=== PATIENT | female | born 1965 | race American Indian/Alaskan Native ===

== ENCOUNTER 2016-11-21 12:39 | Emergency (ER) | payer BC, OTHER ==
[2016-11-21 14:18] LABS: Basophils % (Auto) 0.9 % (0.0-1.8); Eosinophils % (Auto) 0.5 % (0.0-4.3); Hematocrit 41.9 % (30.3-42.9); Hemoglobin 13.6 gm/dl (10.1-14.3); Mean Corpuscular HGB Conc 33 % (30-34); Mean Corpuscular Hemoglobin 30 pg (28-32); Mean Corpuscular Volume 91 fl (79-97); Platelet Count 261 K/mm3 (140-440); Red Blood Count 4.63 M/mm3 (3.65-5.03); Red Cell Distribution Width 14.9 % (13.2-15.2); White Blood Count 5.3 K/mm3 (4.5-11.0)
[2016-11-21 14:27] LABS: Alanine Aminotransferase 11 units/L (7-56); Albumin 3.9 g/dL (3.9-5); Albumin/Globulin Ratio 1.1 %; Alkaline Phosphatase 102 units/L (35-129); Anion Gap 15 mmol/L; BUN/Creatinine Ratio 18.75; Bilirubin,Total 0.2 mg/dL (0.1-1.2); Blood Urea Nitrogen 15 mg/dL (7-17); Calcium 8.6 mg/dL (8.4-10.2); Carbon Dioxide 26 mmol/L (22-30); Glucose 93 mg/dL (65-100); Lipase 55 units/L (13-60); Potassium 4.1 mmol/L (3.6-5.0); Sodium 139 mmol/L (137-145); Total Protein 7.4 g/dL (6.3-8.2)
[2016-11-21 14:54] LABS: Bilirubin,Urine NEG (Negative); Blood,Urine NEG (Negative); Ketones,Urine NEG (Negative); Leukocyte Esterase,Urine NEG (Negative); Mucus,Urine 1+ /HPF; Nitrite,Urine NEG (Negative); Protein,Urine <15 mg/dL mg/dL (Negative); Urobilinogen,Urine < 2.0 mg/dL (<2.0)
[2016-11-22] MEDS ORDERED: MORPHINE IV ONE (00:20)
[2016-11-22] MEDS ORDERED: ZOFRAN IV ONE (00:20)
[2016-11-22] MEDS ORDERED: TORADOL IV ONE (00:20)
[2016-11-22] MEDS ORDERED: NACL ONE (00:28)
--- NOTE | 2016-11-22 01:25 | Emergency Department Report ---
ED Abdominal Pain HPI - General Chief Complaint: Abdominal Pain Stated Complaint: LOWER ABD PAIN Time Seen by Provider: 11/22/16 00:11 Source: patient Mode of arrival: Ambulatory Limitations: No Limitations - History of Present Illness Initial Comments: 51-year-old female with past medical history CHF, COPD, hypertension, high cholesterol, and previous and total hysterectomy presents to the hospital complaining of left lower quadrant abdominal pain 1 week. Patient noticed a "knot" to this area. Pain is sharp and sticking light, intermittent, worse palpation. No alleviating factors. Moderate in intensity. Patient having urinary urgency for several days. Febrile of 101 yesterday. No reports of nausea, vomiting, diarrhea, hematuria, Lanoxin, or hematochezia. - Related Data Home Medications Medication Instructions Recorded Confirmed Last Taken Atorvastatin Calcium [Lipitor] 20 mg PO QHS 03/09/14 03/09/14 10/28/13 Hydrochlorothiazide [HCTZ] 25 mg PO QDAY 03/09/14 03/09/14 11/25/13 Previous Rx's Medication Instructions Recorded Last Taken Type Albuterol *Only Ed* [Proventil 2.5 mg IH Q4HRT PRN #100 nebu 03/10/14 Unknown Rx 0.5% NEBS] Aspirin EC [Aspirin Enteric Coated 81 mg PO QDAY #30 tablet. 03/10/14 Unknown Rx TAB] Ciprofloxacin HCl [Cipro] 500 mg PO BID #10 tablet 03/10/14 Unknown Rx Famotidine [Pepcid] 20 mg PO BID #60 tablet 03/10/14 Unknown Rx HYDROcodone/APAP 5-325 [[place] 1 each PO Q6HR PRN #20 tablet 11/22/16 Unknown Rx 5/325] Allergies Allergy/AdvReac Type Severity Reaction Status Date / Time No Known Allergies Allergy Verified 11/21/16 13:42 ED Review of Systems ROS: Stated complaint: LOWER ABD PAIN Other details as noted in HPI Comment: All other systems reviewed and negative Other: Constitutional: Fever Eyes: No eye pain visual changes or discharge ENT: No ear pain or throat pain Neck: Denies pain Respiratory: Denies cough wheezing shortness of breath Cardiovascular: Denies chest pain, palpitations, syncope GI: Per HPI : Denies dysuria Musculoskeletal: Denies back pain Skin: Denies rash, lesions, erythema Neurologic: Denies headache, numbness, weakness Psychiatric: Denies suicidal ideation, hallucinations ED Past Medical Hx - Past Medical History Hx Hypertension: Yes Hx Congestive Heart Failure: Yes Hx COPD: Yes Additional medical history: HIGH CHOLESTEROL - Surgical History Additional Surgical History: OOPHERECTOMY. HYSTERECTOMY. RIGHT SHOULDER X 3. - Social History Smoking Status: Current Every Day Smoker Substance Use Type: Alcohol - Medications Home Medications: Home Medications Medication Instructions Recorded Confirmed Last Taken Type Atorvastatin Calcium [Lipitor] 20 mg PO QHS 03/09/14 03/09/14 10/28/13 History Hydrochlorothiazide [HCTZ] 25 mg PO QDAY 03/09/14 03/09/14 11/25/13 History Albuterol *Only Ed* [Proventil 2.5 mg IH Q4HRT PRN #100 nebu 03/10/14 Unknown Rx 0.5% NEBS] Aspirin EC [Aspirin Enteric Coated 81 mg PO QDAY #30 tablet. 03/10/14 Unknown Rx TAB] Ciprofloxacin HCl [Cipro] 500 mg PO BID #10 tablet 03/10/14 Unknown Rx Famotidine [Pepcid] 20 mg PO BID #60 tablet 03/10/14 Unknown Rx HYDROcodone/APAP 5-325 [[place] 1 each PO Q6HR PRN #20 tablet 11/22/16 Unknown Rx 5/325] ED Physical Exam - General Limitations: No Limitations - Other Other exam information: General: No limitations, patient is alert in no acute distress Head exam: Atraumatic, normocephalic Eyes exam: Normal appearance, pupils equal reactive to light, extraocular movements intact ENT: Moist mucous membrane, normal oropharynx Neck exam: Normal inspection, full range of motion, no meningismus nontender Respiratory exam: Clear to auscultation bilateral, no wheezes, rales, crackles Cardiovascular: Normal rate and rhythm, normal heart sounds Abdomen: Soft, nondistended, left lower quadrant tenderness, with normal bowel sounds, no rebound, or guarding Extremity: Full range of motion normal inspection no deformity Back: Normal Inspection, full range of motion, no tenderness Neurologic: Alert, oriented x3, cranial nerves intact, no motor or sensory deficit Psychiatric: normal affect, normal mood Skin: Warm, dry, intact ED Course Vital Signs 11/21/16 13:45 Temperature 98.2 F Pulse Rate 84 Respiratory 20 Rate Blood Pressure 133/89 O2 Sat by Pulse 100 Oximetry ED Medical Decision Making - Lab Data Result diagrams: 11/21/16 13:58 11/21/16 13:58 Lab Results 11/21/16 11/21/16 11/21/16 Range/Units 13:58 13:58 14:09 WBC 5.3 (4.5-11.0) K/mm3 RBC 4.63 (3.65-5.03) M/mm3 Hgb 13.6 (10.1-14.3) gm/dl Hct 41.9 (30.3-42.9) % MCV 91 (79-97) fl MCH 30 (28-32) pg MCHC 33 (30-34) % RDW 14.9 (13.2-15.2) % Plt Count 261 (140-440) K/mm3 Lymph % (Auto) 40.9 H (13.4-35.0) % [place] % (Auto) 8.2 H (0.0-7.3) % Eos % (Auto) 0.5 (0.0-4.3) % Baso % (Auto) 0.9 (0.0-1.8) % Lymph # 2.2 (1.2-5.4) K/mm3 [place] # 0.4 (0.0-0.8) K/mm3 Eos # 0.0 (0.0-0.4) K/mm3 Baso # 0.0 (0.0-0.1) K/mm3 Seg Neutrophils % 49.5 (40.0-70.0) % Seg Neutrophils # 2.6 (1.8-7.7) K/mm3 Sodium 139 (137-145) mmol/L Potassium 4.1 (3.6-5.0) mmol/L Chloride 102.0 (98-107) mmol/L Carbon Dioxide 26 (22-30) mmol/L Anion Gap 15 mmol/L BUN 15 (7-17) mg/dL Creatinine 0.8 (0.7-1.2) mg/dL Estimated GFR > 60 ml/min BUN/Creatinine Ratio 18.75 % Glucose 93 (65-100) mg/dL Calcium 8.6 (8.4-10.2) mg/dL Total Bilirubin 0.2 (0.1-1.2) mg/dL AST 13 (5-40) units/L ALT 11 (7-56) units/L Alkaline Phosphatase 102 (35-129) units/L Total Protein 7.4 (6.3-8.2) g/dL Albumin 3.9 (3.9-5) g/dL Albumin/Globulin Ratio 1.1 % Lipase 55 (13-60) units/L Urine Color Yellow (Yellow) Urine Turbidity Clear (Clear) Urine pH 5.0 (5.0-7.0) Ur Specific [place] 1.025 (1.003-1.030) Urine Protein <15 mg/dl (Negative) mg/dL Urine Glucose (UA) Neg (Negative) mg/dL Urine Ketones Neg (Negative) mg/dL Urine Blood Neg (Negative) Urine Nitrite Neg (Negative) Urine Bilirubin Neg (Negative) Urine Urobilinogen < 2.0 (<2.0) mg/dL Ur Leukocyte Esterase Neg (Negative) Urine WBC (Auto) 2.0 (0.0-6.0) /HPF Urine RBC (Auto) 2.0 (0.0-6.0) /HPF U Epithel Cells (Auto) 1.0 (0-13.0) /HPF Urine Mucus 1+ /HPF - Medical Decision Making Patient is better after medication in the ED. No signs of infection or UA, CBC , or CT. CMP is unremarkable. Plan discharge patient home with pain medication. Advised PMD and urology follow-up to rule out primary bladder issue - Differential Diagnosis diverticulitis, UTI, renal colic, bladder spasms Critical Care Time: No Critical care attestation.: If time is entered above; I have spent that time in minutes in the direct care of this critically ill patient, excluding procedure time. ED Disposition Clinical Impression: Urinary urgency, LLQ abdominal pain Disposition: DISCHARGED TO HOME OR SELFCARE Is pt being admited?: No Does the pt Need Aspirin: No Condition: Stable Instructions: Abdominal Pain (ED) Additional Instructions: No abnormality or infection identified during your ED evaluation. Please follow up with your primary care doctor and the urologist for further workup of your symptoms. Please return if symptoms worsen. Prescriptions: HYDROcodone/APAP 5-325 [[place] 5/325] 1 each PO Q6HR PRN #20 tablet PRN Reason: Pain Referrals: ALEX TELLEZ MD [Primary Care Provider] - 3-5 Days MIKE PRESLEY MD [Staff Physician] - 3-5 Days (Urology) Time of Disposition: 03:20
[2016-11-22] MEDS ORDERED: MORPHINE ONE (02:19)
--- NOTE | 2016-11-22 03:05 | Cat Scan Report ---
FINAL REPORT PROCEDURE: CT ABDOMEN PELVIS W CON TECHNIQUE: Computerized axial tomography of the abdomen and pelvis was performed after the IV injection of iodinated nonionic contrast. HISTORY: llq pain, fever COMPARISON: No prior studies are available for comparison. FINDINGS: Visualized lower thorax: No significant abnormality. Liver: Normal size and attenuation. Spleen: Normal size and attenuation. Gallbladder and biliary system: Normal. Pancreas: Normal. Adrenals: Normal. Kidneys: Both kidneys have a normal size. No hydronephrosis. No hydroureter. No renal masses or stones. GI tract: No obstruction. No ileus or enteritis. The cecum, appendix and colon are normal.. Lymph nodes and mesentery: Normal. Vasculature: Normal. Bladder: Normal. Reproductive organs: Normal. Peritoneum: No free fluid. Musculoskeletal structures: No significant abnormality. Other: None. IMPRESSION: There is no evidence of intestinal or urinary tract obstruction. No ileus or enteritis. The appendix is normal.
[2016-11-22 03:47] VITALS: BP 138/90
== END 2016-11-22 03:47 | disposition home or self-care (01) ==
LOC: ED 12:39
DX: R10.32 Left lower quadrant pain (principal); R39.15 Urgency of urination; I10 Essential (primary) hypertension; I50.9 Heart failure, unspecified; J44.9 Chronic obstructive pulmonary disease, unspecified; E78.00 Pure hypercholesterolemia, unspecified; F17.200 Nicotine dependence, unspecified, uncomplicated; Z79.82 Long term (current) use of aspirin
CPT/HCPCS: 36415; 74177; 80053; 81001; 83690; 85025; 96374; 96375; 99284; J1885; J2270; J2405; Q9967

== ENCOUNTER 2019-01-02 11:33 | Emergency (ER) | payer OTHER ==
--- NOTE | 2019-01-02 11:42 | Emergency Department Report ---
Blank Doc - Documentation Documentation: This is a 53-year-old female that presents with right hand pain s/p hitting aly nd. This initial assessment/diagnostic orders/clinical plan/treatment(s) is/are subject to change based on patient's health status, clinical progression and re- assessment by fellow clinical providers in the ED. Further treatment and workup at subsequent clinical providers discretion. Patient/guardians urged not to elope from the ED as their condition may be serious if not clinically assessed and managed. Initial orders include: 1- Patient sent to [facility] for further evaluation and treatment 2- xray
[2019-01-02 11:47] VITALS: BP 142/93
--- NOTE | 2019-01-02 12:52 | XRay Report ---
RIGHT HAND: Pain The bony architecture is intact. Bony alignment is normal. No soft tissue abnormalities are seen. The joint spaces appear preserved. IMPRESSION: Normal right hand.
--- NOTE | 2019-01-02 15:17 | Emergency Department Report ---
ED General Adult HPI - General Chief complaint: Extremity Injury, Upper Stated complaint: RT HAND PAIN Time Seen by Provider: 01/02/19 11:41 Source: patient Mode of arrival: Ambulatory Limitations: No Limitations - History of Present Illness Initial comments: The patient complains of right hand pain after hitting it on a table a week ago. The pain is located on the backside of her right hand and made worse with movement. -: Sudden Location: upper extremity Severity scale (0 -10): 8 Quality: aching Consistency: constant Improves with: rest Worsens with: movement Associated Symptoms: denies other symptoms - Related Data Home Medications Medication Instructions Recorded Confirmed Last Taken Atorvastatin Calcium [Lipitor] 20 mg PO QHS 03/09/14 03/09/14 10/28/13 hydroCHLOROthiazide [HCTZ] 25 mg PO QDAY 03/09/14 03/09/14 11/25/13 Previous Rx's Medication Instructions Recorded Last Taken Type Albuterol *Only Ed* [Proventil 2.5 mg IH Q4HRT PRN #100 nebu 03/10/14 Unknown Rx 0.5% NEBS] Aspirin EC [Aspirin Enteric Coated 81 mg PO QDAY #30 tablet. 03/10/14 Unknown Rx TAB] Ciprofloxacin HCl [Cipro] 500 mg PO BID #10 tablet 03/10/14 Unknown Rx Famotidine [Pepcid] 20 mg PO BID #60 tablet 03/10/14 Unknown Rx HYDROcodone/APAP 5-325 [[place] 1 each PO Q6HR PRN #20 tablet 11/22/16 Unknown Rx 5/325] Ibuprofen [Motrin] 800 mg PO Q8HR PRN #30 tablet 01/02/19 Unknown Rx Allergies Allergy/AdvReac Type Severity Reaction Status Date / Time No Known Allergies Allergy Verified 11/21/16 13:42 ED Review of Systems ROS: Stated complaint: RT HAND PAIN Other details as noted in HPI Comment: All other systems reviewed and negative Constitutional: denies: chills, fever Eyes: denies: eye pain, eye discharge, vision change ENT: denies: ear pain, throat pain Respiratory: denies: cough, shortness of breath, wheezing Cardiovascular: denies: chest pain, palpitations Endocrine: no symptoms reported Gastrointestinal: denies: abdominal pain, nausea, diarrhea Genitourinary: denies: urgency, dysuria, discharge Musculoskeletal: denies: back pain, joint swelling, arthralgia Skin: denies: rash, lesions Neurological: denies: headache, weakness, paresthesias Psychiatric: denies: anxiety, depression Hematological/Lymphatic: denies: easy bleeding, easy bruising ED Past Medical Hx - Past Medical History Hx Hypertension: Yes Hx Congestive Heart Failure: Yes Hx COPD: Yes Additional medical history: HIGH CHOLESTEROL - Surgical History Additional Surgical History: OOPHERECTOMY. HYSTERECTOMY. RIGHT SHOULDER X 3. - Social History Smoking Status: Never Smoker Substance Use Type: None - Medications Home Medications: Home Medications Medication Instructions Recorded Confirmed Last Taken Type Atorvastatin Calcium [Lipitor] 20 mg PO QHS 03/09/14 03/09/14 10/28/13 History hydroCHLOROthiazide [HCTZ] 25 mg PO QDAY 03/09/14 03/09/14 11/25/13 History Albuterol *Only Ed* [Proventil 2.5 mg IH Q4HRT PRN #100 nebu 03/10/14 Unknown Rx 0.5% NEBS] Aspirin EC [Aspirin Enteric Coated 81 mg PO QDAY #30 tablet.dr 03/10/14 Unknown Rx TAB] Ciprofloxacin HCl [Cipro] 500 mg PO BID #10 tablet 03/10/14 Unknown Rx Famotidine [Pepcid] 20 mg PO BID #60 tablet 03/10/14 Unknown Rx HYDROcodone/APAP 5-325 [[place] 1 each PO Q6HR PRN #20 tablet 11/22/16 Unknown Rx 5/325] Ibuprofen [Motrin] 800 mg PO Q8HR PRN #30 tablet 01/02/19 Unknown Rx ED Physical Exam - General Limitations: No Limitations General appearance: alert, in no apparent distress, appears intoxicated - Head Head exam: Present: atraumatic - Eye Eye exam: Present: normal appearance, PERRL, EOMI Pupils: Present: normal accommodation, irregular - ENT ENT exam: Present: mucous membranes moist - Respiratory Respiratory exam: Present: normal lung sounds bilaterally. Absent: respiratory distress, wheezes, rales - Extremities Exam Extremities exam: Present: other (TTPO of the dorsum aspect of the 2nd and 3rd metacarpels) ED Course Vital Signs 01/02/19 11:42 Temperature 97.9 F Pulse Rate 82 Respiratory 18 Rate Blood Pressure 142/93 O2 Sat by Pulse 100 Oximetry ED Medical Decision Making - Radiology Data Radiology results: report reviewed - Medical Decision Making Discussed results with the patient Critical care attestation.: If time is entered above; I have spent that time in minutes in the direct care of this critically ill patient, excluding procedure time. ED Disposition Clinical Impression: Hand pain, right Disposition: DC-01 TO HOME OR SELFCARE Is pt being admited?: No Does the pt Need Aspirin: No Condition: Stable Instructions: Hand Sprain (ED) Additional Instructions: return if worse Referrals: ALEX TELLEZ MD [Primary Care Provider] - 3-5 Days Time of Disposition: 15:18
== END 2019-01-02 15:26 | disposition home or self-care (01) ==
LOC: ED 11:33
DX: M79.641 Pain in right hand (principal); I11.0 Hypertensive heart disease with heart failure; I50.9 Heart failure, unspecified; J44.9 Chronic obstructive pulmonary disease, unspecified; E78.00 Pure hypercholesterolemia, unspecified

== ENCOUNTER 2020-06-19 14:11 | Emergency (ER) | payer OTHER ==
[2020-06-19 14:30] VITALS: BP 130/95
--- NOTE | 2020-06-19 15:25 | XRay Report ---
RIGHT KNEE 3 VIEW INDICATION / CLINICAL INFORMATION: Right knee pain. COMPARISON: None available. FINDINGS: BONES/JOINT(S): No acute fracture or subluxation. No significant degenerative changes. No joint effus ion identified. SOFT TISSUES: No significant abnormality. ADDITIONAL FINDINGS: None. Signer Name: Mookie Rendon MD Signed: 06/19/2020 3:20 PM Workstation Name: [id number]
--- NOTE | 2020-06-19 15:32 | Emergency Department Report ---
ED Lower Extremity HPI - General Chief Complaint: Extremity Injury, Lower Stated Complaint: KNEE OUT OF PLACE Time Seen by Provider: 06/19/20 15:27 Source: patient Mode of arrival: Wheelchair Limitations: No Limitations - History of Present Illness Initial Comments: 54-year-old -[place] female states that she woke up this morning with right knee pain. Patient denies any injury. She states that she had twisted her knee while she was getting out of the bed. Patient reports she has had a history of a knee injury before in the past. MD Complaint: knee injury -: This morning Injury: Knee: Right Type of Injury: unknown Place: home Severity scale (0 -10): 9 Improves With: immobilization Worsens With: weight bearing, movement (bending) Associated Symptoms: swelling - Related Data Home Medications Medication Instructions Recorded Confirmed Last Taken Atorvastatin Calcium [Lipitor] 20 mg PO QHS 03/09/14 03/09/14 10/28/13 hydroCHLOROthiazide [HCTZ] 25 mg PO QDAY 03/09/14 03/09/14 11/25/13 Previous Rx's Medication Instructions Recorded Last Taken Type Albuterol *Only Ed* [Proventil 2.5 mg IH Q4HRT PRN #100 nebu 03/10/14 Unknown Rx 0.5% NEBS] Aspirin EC [Halfprin EC] 81 mg PO QDAY #30 tablet. 03/10/14 Unknown Rx Ciprofloxacin HCl [Cipro] 500 mg PO BID #10 tablet 03/10/14 Unknown Rx Famotidine [Pepcid] 20 mg PO BID #60 tablet 03/10/14 Unknown Rx HYDROcodone/APAP 5-325 [[place] 1 each PO Q6HR PRN #20 tablet 11/22/16 Unknown Rx 5/325] Ibuprofen [Motrin] 800 mg PO Q8HR PRN #30 tablet 01/02/19 Unknown Rx Ibuprofen [Motrin 600 MG tab] 600 mg PO Q8H PRN #30 tablet 06/19/20 Unknown Rx Allergies Allergy/AdvReac Type Severity Reaction Status Date / Time No Known Allergies Allergy Verified 11/21/16 13:42 ED Review of Systems ROS: Stated complaint: KNEE OUT OF PLACE Other details as noted in HPI Comment: All other systems reviewed and negative ED Past Medical Hx - Past Medical History Previous Medical History?: Yes Hx Hypertension: Yes Hx Congestive Heart Failure: Yes Hx COPD: Yes Additional medical history: HIGH CHOLESTEROL - Surgical History Past Surgical History?: Yes Additional Surgical History: OOPHERECTOMY. HYSTERECTOMY. RIGHT SHOULDER X 3. - Social History Smoking Status: Never Smoker Substance Use Type: None - Medications Home Medications: Home Medications Medication Instructions Recorded Confirmed Last Taken Type Atorvastatin Calcium [Lipitor] 20 mg PO QHS 03/09/14 03/09/14 10/28/13 History hydroCHLOROthiazide [HCTZ] 25 mg PO QDAY 03/09/14 03/09/14 11/25/13 History Albuterol *Only Ed* [Proventil 2.5 mg IH Q4HRT PRN #100 nebu 03/10/14 Unknown Rx 0.5% NEBS] Aspirin EC [Halfprin EC] 81 mg PO QDAY #30 tablet. 03/10/14 Unknown Rx Ciprofloxacin HCl [Cipro] 500 mg PO BID #10 tablet 03/10/14 Unknown Rx Famotidine [Pepcid] 20 mg PO BID #60 tablet 03/10/14 Unknown Rx HYDROcodone/APAP 5-325 [[place] 1 each PO Q6HR PRN #20 tablet 11/22/16 Unknown Rx 5/325] Ibuprofen [Motrin] 800 mg PO Q8HR PRN #30 tablet 01/02/19 Unknown Rx Ibuprofen [Motrin 600 MG tab] 600 mg PO Q8H PRN #30 tablet 06/19/20 Unknown Rx ED Physical Exam - General Limitations: No Limitations General appearance: alert, in no apparent distress - Head Head exam: Present: atraumatic, normocephalic - Eye Eye exam: Present: normal appearance - ENT ENT exam: Present: mucous membranes moist - Neck Neck exam: Present: normal inspection - Expanded Lower Extremity Exam Right Knee exam: Present: tenderness, swelling. Absent: full ROM Lower Leg exam: Present: normal inspection, full ROM Ankle exam: Present: normal inspection, full ROM Foot/Toe exam: Present: normal inspection, full ROM - Neurological Exam Neurological exam: Present: alert, oriented X3 - Psychiatric Psychiatric exam: Present: normal affect, normal mood - Skin Skin exam: Present: warm, dry, intact, normal color. Absent: rash ED Course Vital Signs 06/19/20 06/19/20 06/19/20 14:29 16:07 16:22 Temperature 98.4 F Pulse Rate 83 Respiratory 18 18 18 Rate Blood Pressure 130/95 [Right] O2 Sat by Pulse 98 Oximetry ED Lower Extremity MDM - Radiology Data Radiology results: report reviewed Patient: [address] MR#: [id number] : 1965 Acct:[id number] Age/Sex: 54 / F ADM Date: 06/19/20 Loc: ED Attending Dr: Ordering Physician: MARIAM YANEZ MD Date of Service: 06/19/20 Procedure(s): XR knee 3V RT Accession Number(s): [id number] cc: ED MD BEAU Fluoro Time In Minutes: RIGHT KNEE 3 VIEW INDICATION / CLINICAL INFORMATION: Right knee pain. COMPARISON: None available. FINDINGS: BONES/JOINT(S): No acute fracture or subluxation. No significant degenerative changes. No joint effusion identified. SOFT TISSUES: No significant abnormality. ADDITIONAL FINDINGS: None. Signer Name: Mookie Rendon MD Signed: 06/19/2020 3:20 PM Workstation Name: [id number] Transcribed By: AYAD Dictated By: Mookie Rendon MD Electronically Authenticated By: Mookie Rendon MD Signed Date/Time: 06/19/20 152 DD/ 1520 TD/TT: - Medical Decision Making 54-year-old -[place] female states that she woke up this morning with right knee pain. Patient denies any injury. She states that she had twisted her knee while she was getting out of the bed. Patient reports she has had a history of a knee injury before in the past. X-ray is negative for any acute findings degenerative changes. Patient be placed in a knee immobilizer crutches and a referral to orthopedics. Critical care attestation.: If time is entered above; I have spent that time in minutes in the direct care of this critically ill patient, excluding procedure time. ED Disposition Clinical Impression: Knee pain, left anterior Disposition: DC-01 TO HOME OR SELFCARE Is pt being admited?: No Does the pt Need Aspirin: No Condition: Stable Instructions: Arthralgia (ED) Additional Instructions: X-ray is negative for any acute fractures or dislocations. That does not mean that you could have entered sure your ligaments. I recommend wearing the knee immobilizer use the crutches and is very important for you to follow-up with an orthopedic provider as they may want to do further testing. Prescriptions: Ibuprofen [Motrin 600 MG tab] 600 mg PO Q8H PRN #30 tablet PRN Reason: Pain Referrals: JOSE SHEEHAN MD [Staff Physician] - 3-5 Days Forms: Work/School Release Form(ED)
[2020-06-19] MEDS ORDERED: traMADol 50 MG TAB PO ONE (15:33)
== END 2020-06-19 16:29 | disposition home or self-care (01) ==
LOC: ED 14:11
DX: M25.561 Pain in right knee (principal); I50.9 Heart failure, unspecified; I11.0 Hypertensive heart disease with heart failure; J44.9 Chronic obstructive pulmonary disease, unspecified; Z90.710 Acquired absence of both cervix and uterus; Z98.890 Other specified postprocedural states; Z90.89 Acquired absence of other organs; Z79.1 Long term (current) use of non-steroidal anti-inflammatories (NSAID); Z79.2 Long term (current) use of antibiotics; Z79.899 Other long term (current) drug therapy